=== PATIENT | female | born 1955 | race Caucasian/White ===

== ENCOUNTER 2022-12-10 12:04 | Emergency (ER) | payer OTHER, MEDICARE ==
[~2022-12-10] VITALS: Ht 172.7 cm; Wt 108.6 kg
[2022-12-10] MEDS ORDERED: HYDROCODON-ACE1 EA11 PO (15:55)
[2022-12-10 16:28] VITALS: BP 111/70
== END 2022-12-10 16:30 | disposition home or self-care (01) ==
LOC: ED 12:04
DX: S52.122A Displaced fracture of head of left radius, initial encounter for closed fracture (principal); S52.132A Displaced fracture of neck of left radius, initial encounter for closed fracture; W01.0XXA Fall on same level from slipping, tripping and stumbling without subsequent striking against object, initial encounter
CPT/HCPCS: 24600; 73060; 73070; 73080; 99152; 99153; 99283-25; A9270; J1170; J1885; J2704; J3010; J7040